=== PATIENT | female | born 1960 | race Caucasian/White ===

== ENCOUNTER 2022-06-04 14:57 | Emergency (ER) | payer OTHER ==
[~2022-06-04] VITALS: Ht 154.9 cm; Wt 60.0 kg
[2022-06-04 15:04] VITALS: BP 127/71
[2022-06-04] MEDS ORDERED: ACETAMINOPHEN 325MG TABLET PO ONE (18:45)
== END 2022-06-04 18:58 | disposition home or self-care (01) ==
LOC: ER 14:57
DX: S09.90XA Unspecified injury of head, initial encounter (principal); X58.XXXA Exposure to other specified factors, initial encounter; Y93.89 Activity, other specified; Y92.89 Other specified places as the place of occurrence of the external cause; Y99.8 Other external cause status
CPT/HCPCS: 99284